=== PATIENT | female | born 1940 | race Caucasian/White ===

== ENCOUNTER 2017-08-14 09:10 | Emergency (ER) | payer MEDICARE, BC ==
--- NOTE | 2017-08-14 09:14 | EDM.PDOC ---
ED HPI GENERAL MEDICAL PROBLEM - General Chief Complaint: Gastrointestinal Problem Stated Complaint: flu like symptoms Time Seen by Provider: 08/14/17 09:14 Source of Information: Reports: Patient, RN, RN Notes Reviewed History Limitations: Reports: No Limitations - History of Present Illness INITIAL COMMENTS - FREE TEXT/NARRATIVE: Pt arrives from home by POV with c/o 2 weeks duration of black diarrhea. Denies abdominal pain, lightheadedness, orthostatic dizziness, vomiting, fever, chills , or urinary Sx's. Admits to occasional mild nausea, decreased appetite, generalized weakness and fatigue, and just not feeling well in general. Pt states that she has had no pain or heartburn. She does get some lower abdominal cramping that precedes the diarrhea. She has not had any blood or melenotic stool. Duration: Week(s): (2), Constant Location: Reports: Abdomen Severity: Severe Improves with: Reports: None Worsens with: Reports: None Associated Symptoms: Reports: No Other Symptoms - Related Data Allergies Allergy/AdvReac Type Severity Reaction Status Date / Time meperidine HCl [From Demerol] Allergy Vomiting Verified 11/02/13 18:06 Home Meds: Home Meds Fish Oil/[place]-3 Fatty Acids [Fish Oil] 1 each PO DAILY 11/02/13 [History] Multivitamin [Multivitamins] 1 each PO DAILY 11/02/13 [History] Alendronate Sodium [Alendronate] 1 tab PO ASDIRECTED 08/14/17 [History] Calcium Carbonate/Vitamin D3 [Calcium 600-Vit D3 800 Caplet] 1 tab PO DAILY 08/30 [History] Donepezil HCl 1 tab PO DAILY 08/14/17 [History] Flaxseed Oil/[place] 3,6,9 [Sv Flaxseed Oil 1,300 mg Sftgl] 1 cap PO DAILY [History] Simvastatin [Simvastatin] 1 tab PO DAILY 08/14/17 [History] Past Medical History Musculoskeletal History: Reports: Osteoporosis Psychiatric History: Reports: Dementia Social & Family History - Family History Oncologic: Reports: Other (See Below) (Father of Stomach cancer at 75yrs.) - Living Situation & Occupation Occupation: Retired ED ROS GENERAL - Review of Systems Review Of Systems: ROS reveals no pertinent complaints other than HPI. ED EXAM, GENERAL - Physical Exam Exam: See Below Exam Limited By: No Limitations General Appearance: Alert, No Apparent Distress, Other (ill but non-toxic appearing) Eye Exam: Bilateral Eye: EOMI, PERRL, Other (conjunctival pallor) Ears: Normal External Exam, Hearing Grossly Normal Nose: Normal Inspection, Normal Mucosa, No Blood Throat/Mouth: Normal Lips, Normal Teeth, Normal Gums, Normal Oropharynx, Normal Voice, No Airway Compromise, Other (dry oral membranes) Head: Atraumatic, Normocephalic Neck: Normal Inspection, Supple, Non-Tender, Full Range of Motion Respiratory/Chest: No Respiratory Distress, Lungs Clear, Normal Breath Sounds, No Accessory Muscle Use, Chest Non-Tender Cardiovascular: Regular Rate, Rhythm, No Edema, Tachycardia GI/Abdominal: Normal Bowel Sounds, Soft, Non-Tender, No Distention, No Abnormal Bruit. No: Guarding, Rigid, Rebound (Female) Exam: Deferred Rectal (Female) Exam: Normal Exam, Normal Rectal Tone, Heme - Stool Back Exam: Normal Inspection, Full Range of Motion. No: CVA Tenderness (L), CVA Tenderness (R) Extremities: Normal Inspection, Normal Range of Motion, Non-Tender, Normal Capillary Refill, No Pedal Edema Neurological: Alert, Oriented, CN II-XII Intact, Normal Cognition, Normal Gait, No Motor/Sensory Deficits Psychiatric: Normal Affect, Normal Mood Skin Exam: Warm, Dry, Intact, No Rash, Pallor Course - Vital Signs Last Recorded V/S: Last Vital Signs Temp 37.2 C 08/14/17 09:13 Pulse 104 H 08/14/17 09:13 Resp 16 08/14/17 09:13 BP 129/71 08/14/17 09:13 Pulse Ox 98 08/14/17 09:13 - Orders/Labs/Meds Orders: Active Orders 24 hr Category Date Time Status Peripheral IV Care [RC] . DIRECTED Care 08/14/17 09:37 Active UA W/MICROSCOPIC [URIN] Stat Lab 08/14/17 09:37 Uncollected Pantoprazole [ProTONIX IV] 40 mg Med 08/14/17 09:40 Active Sodium Chloride 0.9% [Normal Saline] 100 ml IV .CONTINUOS Sodium Chloride 0.9% [Saline Flush] Med 08/14/17 09:37 Active 10 ml FLUSH ASDIRECTED PRN Peripheral IV Insertion Adult [OM.PC] Stat Oth 08/14/17 09:37 Ordered Medication Orders Pantoprazole Sodium 40 mg/ (Sodium Chloride) 100 mls @ 20 mls/hr IV .CONTINUOS BRIE Last Admin: 08/14/17 10:17 Dose: 20 mls/hr Sodium Chloride (Saline Flush) 10 ml FLUSH ASDIRECTED PRN PRN Reason: Keep Vein Open Last Admin: 08/14/17 09:50 Dose: 10 ml Labs: Laboratory Tests 08/14/17 08/14/17 08/14/17 Range/Units 09:45 09:45 09:45 WBC 6.0 (5.0-10.0) 10^3/uL RBC 4.10 L (4.2-5.4) 10^6/uL Hgb 13.1 (12.0-16.0) g/dL Hct 38.7 (37.0-47.0) % MCV 94.4 (80-100) fL MCH 32.0 (27.0-34.0) pg MCHC 33.9 (33.0-35.0) g/dL Plt Count 318 (150-450) 10^3/uL Neut % (Auto) 70.6 (42.2-75.2) % Lymph % (Auto) 20.0 L (20.5-50.1) % [place] % (Auto) 8.2 H (2-8) % Eos % (Auto) 0.5 L (1.0-3.0) % Baso % (Auto) 0.7 (0.0-1.0) % PT 10.1 (9.0-12.0) SEC INR 1.0 (0.9-1.2) APTT 23.8 (22.0-34.0) SEC Sodium 142 (135-145) mmol/L Potassium 3.1 L (3.6-5.0) mmol/L Chloride 105 (101-111) mmol/L Carbon Dioxide 25.0 (21.0-31.0) mmol/L Anion Gap 15.1 BUN 21 H (7-18) mg/dL Creatinine 0.7 (0.6-1.3) mg/dL Est Cr Clr Drug Dosing 65.01 mL/min Estimated GFR (MDRD) > 60 BUN/Creatinine Ratio 30.00 Glucose 107 H (74-105) mg/dL Lactic Acid (0.5-2.2) mmol/L Calcium 9.8 (8.4-10.2) mg/dl Total Bilirubin 1.0 (0.2-1.0) mg/dL AST 37 (10-42) IU/L ALT 32 (10-60) IU/L Alkaline Phosphatase 54 (42-121) IU/L Lactate Dehydrogenase 172 (91-180) IU/L Total Protein 7.2 (6.7-8.2) g/dl Albumin 4.5 (3.2-5.5) g/dl Globulin 2.7 Albumin/Globulin Ratio 1.67 Amylase 56 (28-100) U/L Lipase 32 (22-51) U/L 08/14/17 Range/Units 09:45 WBC (5.0-10.0) 10^3/uL RBC (4.2-5.4) 10^6/uL Hgb (12.0-16.0) g/dL Hct (37.0-47.0) % MCV (80-100) fL MCH (27.0-34.0) pg MCHC (33.0-35.0) g/dL Plt Count (150-450) 10^3/uL Neut % (Auto) (42.2-75.2) % Lymph % (Auto) (20.5-50.1) % [place] % (Auto) (2-8) % Eos % (Auto) (1.0-3.0) % Baso % (Auto) (0.0-1.0) % PT (9.0-12.0) SEC INR (0.9-1.2) APTT (22.0-34.0) SEC Sodium (135-145) mmol/L Potassium (3.6-5.0) mmol/L Chloride (101-111) mmol/L Carbon Dioxide (21.0-31.0) mmol/L Anion Gap BUN (7-18) mg/dL Creatinine (0.6-1.3) mg/dL Est Cr Clr Drug Dosing mL/min Estimated GFR (MDRD) BUN/Creatinine Ratio Glucose (74-105) mg/dL Lactic Acid 0.8 (0.5-2.2) mmol/L Calcium (8.4-10.2) mg/dl Total Bilirubin (0.2-1.0) mg/dL AST (10-42) IU/L ALT (10-60) IU/L Alkaline Phosphatase (42-121) IU/L Lactate Dehydrogenase (91-180) IU/L Total Protein (6.7-8.2) g/dl Albumin (3.2-5.5) g/dl Globulin Albumin/Globulin Ratio Amylase (28-100) U/L Lipase (22-51) U/L Heme Negative stool Meds: Medications Generic Name Dose Route Start Last Admin Trade Name Freq PRN Reason Stop Dose Admin Pantoprazole Sodium 40 mg/ 100 mls @ 20 mls/hr 08/14/17 09:40 08/14/17 10:17 Sodium Chloride IV 20 mls/hr .CONTINUOS BRIE Administration Sodium Chloride 10 ml 08/14/17 09:37 08/14/17 09:50 Saline Flush FLUSH 10 ml ASDIRECTED PRN Administration Keep Vein Open Discontinued Medications Generic Name Dose Route Start Last Admin Trade Name Freq PRN Reason Stop Dose Admin Sodium Chloride 1,000 mls @ 999 mls/hr 08/14/17 09:39 08/14/17 09:59 Normal Saline IV 08/14/17 10:39 999 mls/hr .BOLUS ONE Administration Pantoprazole Sodium 80 mg 08/14/17 09:39 08/14/17 10:03 Protonix Iv IVPUSH 08/14/17 09:40 80 mg .BOLUS ONE Administration Departure - Departure Time of Disposition: 13:10 Disposition: Home, Self-Care 01 Condition: Good Clinical Impression: Diarrhea - Discharge Information Instructions: Diarrhea, Adult, [id number] Referrals: Noreen Khoury MD [Primary Care Provider] - Forms: ED Department Discharge Additional Instructions: Rx: Lomotil Follow up in clinic with your doctor in 3 to 4 days for recheck. Return to ER if worse at any time. - My Orders Last 24 Hours: My Active Orders 08/14/17 09:37 Peripheral IV Care [RC] . DIRECTED UA W/MICROSCOPIC [URIN] Stat Sodium Chloride 0.9% [Saline Flush] 10 ml FLUSH ASDIRECTED PRN Peripheral IV Insertion Adult [OM.PC] Stat 08/14/17 09:40 Pantoprazole [ProTONIX IV] 40 mg Sodium Chloride 0.9% [Normal Saline] 100 ml IV .CONTINUOS - Assessment/Plan Last 24 Hours: My Active Orders 08/14/17 09:37 Peripheral IV Care [RC] . DIRECTED UA W/MICROSCOPIC [URIN] Stat Sodium Chloride 0.9% [Saline Flush] 10 ml FLUSH ASDIRECTED PRN Peripheral IV Insertion Adult [OM.PC] Stat 08/14/17 09:40 Pantoprazole [ProTONIX IV] 40 mg Sodium Chloride 0.9% [Normal Saline] 100 ml IV .CONTINUOS
[2017-08-14] MEDS ORDERED: Sodium Chloride 0.9% 10 ML Syringe FLUSH PRN (09:37)
[2017-08-14] MEDS ORDERED: Pantoprazole 40 MG Vial IVPUSH ONE (09:39)
[2017-08-14] MEDS ORDERED: Sodium Chloride 0.9% 1,000 ML IV ONE (09:39)
[2017-08-14] MEDS ORDERED: Pantoprazole 40 MG in Sodium Chloride 0.9% 100 ML IV SCH (09:40)
[2017-08-14 10:15] LABS: CHLORIDE,CL 105 mmol/L (101-111); SODIUM,NA 142 mmol/L (135-145)
== END 2017-08-14 13:36 | disposition home or self-care (01) ==
LOC: DL.ED 09:10
DX: R19.7 Diarrhea, unspecified (principal); M81.0 Age-related osteoporosis without current pathological fracture; F03.90 Unspecified dementia, unspecified severity, without behavioral disturbance, psychotic disturbance, mood disturbance, and anxiety; Z88.5 Allergy status to narcotic agent; Z79.899 Other long term (current) drug therapy
CPT/HCPCS: 36415; 80053; 82150; 82272; 83605; 83615; 83690; 85025; 85610; 85730; 96365; 96366; 96376; 99284; C9113; J7030; J7050

== ENCOUNTER 2018-01-15 19:16 | Emergency (ER) | payer MEDICARE, BC ==
[2018-01-15] MEDS ORDERED: Sodium Chloride 0.9% 1,000 ML IV ONE ×2 (19:44→23:04)
[2018-01-15] MEDS ORDERED: Sodium Chloride 0.9% 10 ML Syringe FLUSH PRN (19:44)
[2018-01-15 20:05] LABS: ANION GAP 12.5; CHLORIDE,CL 104 mmol/L (101-111); SODIUM,NA 139 mmol/L (135-145)
[2018-01-15] MEDS ORDERED: Ondansetron 4 MG/2 ML SDV IV ONE (20:53)
[2018-01-15] MEDS ORDERED: Vancomycin 50 MG/ML Oral Solution Bottle Kit PO ONE (21:51)
--- NOTE | 2018-01-15 21:56 | EDM.PDOC ---
ED HPI GENERAL MEDICAL PROBLEM - General Chief Complaint: Gastrointestinal Problem Stated Complaint: [id number] DEHYDRATED Time Seen by Provider: 01/15/18 19:45 Source of Information: Reports: Patient, Family, RN, RN Notes Reviewed History Limitations: Reports: No Limitations - History of Present Illness INITIAL COMMENTS - FREE TEXT/NARRATIVE: Pt to ER with c/o severe diarrhea that is "black". Patient states this happened about 3 months ago and she had C Diff. Pt states she feels she is very dehydrated. C/o nausea at times, decreased appetite, generalized weakness. Onset: Gradual Abdominal Pain Score (Numeric/FACES): 2 - Related Data Allergies Allergy/AdvReac Type Severity Reaction Status Date / Time meperidine HCl [From Demerol] Allergy Vomiting Verified 01/15/18 19:51 Home Meds: Home Meds Fish Oil/[place]-3 Fatty Acids [Fish Oil] 1 each PO DAILY 11/02/13 [History] Multivitamin [Multivitamins] 1 each PO DAILY 11/02/13 [History] Calcium Carbonate/Vitamin D3 [Calcium 600-Vit D3 800 Caplet] 1,000 tab PO DAILY 08/14/17 [History] Donepezil HCl 1 tab PO DAILY 08/14/17 [History] Flaxseed Oil/[place] 3,6,9 [Sv Flaxseed Oil 1,300 mg Sftgl] 1 cap PO DAILY [History] Simvastatin 1 tab PO DAILY 08/14/17 [History] Aspirin [[place] Chewable Aspirin] 81 mg PO DAILY 01/15/18 [History] Raloxifene [Evista] 60 mg PO DAILY 01/15/18 [History] Past Medical History Cardiovascular History: Reports: High Cholesterol Respiratory History: Reports: None Gastrointestinal History: Reports: None, Other (See Below) Other Gastrointestinal History: dairrhea stool in past. Unable to remember. 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: Musculoskeletal History: Reports: Osteoporosis Neurological History: Reports: Other (See Below) Other Neuro History: early onset dementia Psychiatric History: Reports: Dementia Endocrine/Metabolic History: Reports: None, Osteoporosis Hematologic History: Reports: None Immunologic History: Reports: None Oncologic (Cancer) History: Reports: None Dermatologic History: Reports: None - Infectious Disease History Infectious Disease History: Reports: C-Difficile - Past Surgical History HEENT Surgical History: Reports: Cataract Surgery Female Surgical History: Reports: Hysterectomy Social & Family History - Family History Oncologic: Reports: Other (See Below) - Tobacco Use Smoking Status *Q: Never Smoker Second Hand Smoke Exposure: No - Caffeine Use Caffeine Use: Reports: Coffee Other Caffeine Use: 5 cups/day. - Recreational Drug Use Recreational Drug Use: No - Living Situation & Occupation Occupation: Retired ED ROS GENERAL - Review of Systems Review Of Systems: ROS reveals no pertinent complaints other than HPI. ED EXAM, GI/ABD - Physical Exam Exam: See Below Exam Limited By: No Limitations General Appearance: Lethargic, Mild Distress Eyes: Bilateral: Normal Appearance, EOMI Ears: Normal External Exam, Hearing Grossly Normal Nose: Normal Inspection Throat/Mouth: Normal Voice, No Airway Compromise, Other (dry mucous membranes) Head: Atraumatic, Normocephalic Neck: Normal Inspection, Supple, Non-Tender, Full Range of Motion Respiratory/Chest: No Respiratory Distress, Lungs Clear, Normal Breath Sounds, No Accessory Muscle Use, Chest Non-Tender Cardiovascular: Normal Peripheral Pulses, Regular Rate, Rhythm, No Edema, No Gallop, No JVD, No Murmur, No Rub GI/Abdominal Exam: Normal Bowel Sounds, Soft, No Organomegaly, No Distention, No Abnormal Bruit, No Mass, Pelvis Stable, Tender (Female) Exam: Deferred Rectal (Female) Exam: Deferred Back Exam: Normal Inspection, Full Range of Motion, NT Extremities: Normal Inspection, Normal Range of Motion, Non-Tender, Normal Capillary Refill, No Pedal Edema Neurological: Alert, Oriented, CN II-XII Intact, Normal Cognition, Normal Gait, Normal Reflexes, No Motor/Sensory Deficits Psychiatric: Normal Affect, Normal Mood Skin Exam: Warm, Dry, Intact, Normal Color, No Rash Lymphatic: No Adenopathy EKG INTERPRETATION EKG Date: 01/15/18 Time: 22:35 Rhythm: NSR Rate (Beats/Min): 80 Comparison: No Change Course - Vital Signs Last Recorded V/S: Last Vital Signs Temp 99.5 F 01/16/18 00:33 Pulse 92 01/16/18 00:33 Resp 19 01/16/18 00:33 BP 96/57 L 01/16/18 00:33 Pulse Ox 94 L 01/16/18 00:33 Orthostatic Blood Pressure [ 109/57 Standing] Orthostatic Blood Pressure [ 104/65 Sitting] Orthostatic Blood Pressure [ 108/54 Supine] - Orders/Labs/Meds Orders: Active Orders 24 hr Category Date Time Status EKG 12 Lead [EKG Documentation Completion] [] URGENT Care 01/16/18 00:15 Active Peripheral IV Care [] . DIRECTED Care 01/15/18 19:45 Active C DIFFICILE TOXIN BY PCR [MREF] Stat Lab 01/15/18 21:18 Received CULTURE STOOL [RM] Stat Lab 01/15/18 21:18 Received OCCULT BLOOD DIAGNOSTIC [OP] Stat Lab 01/15/18 21:18 Ordered SHIGA TOXIN 1 & 2 [MREF] Stat Lab 01/15/18 21:18 Received Peripheral IV Insertion Adult [OM.PC] Stat Oth 01/15/18 19:44 Ordered Labs: Laboratory Tests 01/15/18 01/15/18 01/15/18 Range/Units 19:38 19:38 19:38 WBC 11.6 H (5.0-10.0) 10^3/uL RBC 4.15 L (4.2-5.4) 10^6/uL Hgb 13.1 (12.0-16.0) g/dL Hct 39.6 (37.0-47.0) % MCV 95.4 (80-100) fL MCH 31.6 (27.0-34.0) pg MCHC 33.1 (33.0-35.0) g/dL Plt Count 285 (150-450) 10^3/uL Neut % (Auto) 88.7 H (42.2-75.2) % Lymph % (Auto) 6.3 L (20.5-50.1) % [place] % (Auto) 4.4 (2-8) % Eos % (Auto) 0.4 L (1.0-3.0) % Baso % (Auto) 0.2 (0.0-1.0) % Sodium 139 (135-145) mmol/L Potassium 3.5 L (3.6-5.0) mmol/L Chloride 104 (101-111) mmol/L Carbon Dioxide 26.0 (21.0-31.0) mmol/L Anion Gap 12.5 BUN 23 H (7-18) mg/dL Creatinine 0.8 (0.6-1.3) mg/dL Est Cr Clr Drug Dosing TNP Estimated GFR (MDRD) > 60 BUN/Creatinine Ratio 28.75 Glucose 121 H (74-105) mg/dL Calcium 9.6 (8.4-10.2) mg/dl Total Bilirubin 1.2 H (0.2-1.0) mg/dL AST 32 (10-42) IU/L ALT 25 (10-60) IU/L Alkaline Phosphatase 60 (42-121) IU/L Troponin I < 0.02 (0.00-0.02) ng/ml Total Protein 7.1 (6.7-8.2) g/dl Albumin 4.5 (3.2-5.5) g/dl Globulin 2.6 Albumin/Globulin Ratio 1.73 01/16/18 Range/Units 00:52 WBC 8.5 (5.0-10.0) 10^3/uL RBC 3.61 L (4.2-5.4) 10^6/uL Hgb 11.6 L D (12.0-16.0) g/dL Hct 34.8 L (37.0-47.0) % MCV 96.4 (80-100) fL MCH 32.1 (27.0-34.0) pg MCHC 33.3 (33.0-35.0) g/dL Plt Count 249 (150-450) 10^3/uL Neut % (Auto) (42.2-75.2) % Lymph % (Auto) (20.5-50.1) % [place] % (Auto) (2-8) % Eos % (Auto) (1.0-3.0) % Baso % (Auto) (0.0-1.0) % Sodium (135-145) mmol/L Potassium (3.6-5.0) mmol/L Chloride (101-111) mmol/L Carbon Dioxide (21.0-31.0) mmol/L Anion Gap BUN (7-18) mg/dL Creatinine (0.6-1.3) mg/dL Est Cr Clr Drug Dosing Estimated GFR (MDRD) BUN/Creatinine Ratio Glucose (74-105) mg/dL Calcium (8.4-10.2) mg/dl Total Bilirubin (0.2-1.0) mg/dL AST (10-42) IU/L ALT (10-60) IU/L Alkaline Phosphatase (42-121) IU/L Troponin I (0.00-0.02) ng/ml Total Protein (6.7-8.2) g/dl Albumin (3.2-5.5) g/dl Globulin Albumin/Globulin Ratio Meds: Medications Discontinued Medications Generic Name Dose Route Start Last Admin Trade Name Freq PRN Reason Stop Dose Admin Dicyclomine HCl 10 mg 01/15/18 22:08 01/15/18 22:24 Bentyl PO 01/15/18 22:09 10 mg ONETIME ONE Administration Dicyclomine HCl 20 mg 01/15/18 22:34 01/15/18 22:43 Bentyl IM 01/15/18 22:35 20 mg ONETIME ONE Administration Sodium Chloride 1,000 mls @ 999 mls/hr 01/15/18 19:44 01/15/18 19:49 Normal Saline IV 01/15/18 20:44 999 mls/hr .BOLUS ONE Administration Vancomycin HCl 500 mg/ Sodium 100 mls @ 100 mls/hr 01/15/18 22:07 01/15/18 22 :14 Chloride IV 01/15/18 23:06 100 mls/hr ONETIME ONE Administration Sodium Chloride 1,000 mls @ 999 mls/hr 01/15/18 23:04 01/15/18 23:10 Normal Saline IV 01/16/18 00:04 999 mls/hr .BOLUS ONE Administration Metoclopramide HCl 10 mg 01/15/18 22:47 01/15/18 22:57 Reglan IVPUSH 01/15/18 22:48 10 mg ONETIME ONE Administration Ondansetron HCl 4 mg 01/15/18 20:53 01/15/18 20:58 Zofran IV 01/15/18 20:54 4 mg ONETIME ONE Administration Sodium Chloride 10 ml 01/15/18 19:44 01/15/18 19:49 Saline Flush FLUSH 10 ml ASDIRECTED PRN Administration Keep Vein Open Vancomycin HCl 125 mg 01/15/18 21:51 01/15/18 22:09 Vancomycin 50 Mg/Ml Soln PO 01/15/18 21:52 Not Given ONETIME ONE - Re-Assessments/Exams Free Text/Narrative Re-Assessment/Exam: 01/15/18 23:56 Patient developed more nausea with pain radiating up into the chest. Troponin and EKG ordered. 01/16/18 05:37 Discussed patient case with Dr. Salgado twice. The first time he felt the patient could be discharged on oral vancomycin. The patient developed nausea, chest pain , and her BP dropped. Second time Dr. Salgado was notified, he states he feels the patient should be transferred to [facility] for a scope. The patient refuses to go to [facility]. She states she will return to the ER if she has any further problems. Departure - Departure Time of Disposition: 21:52 Disposition: Home, Self-Care 01 Condition: Fair Clinical Impression: Diarrhea Qualifiers: Diarrhea type: infectious Qualified Code(s): A09 - Infectious gastroenteritis and colitis, unspecified - Discharge Information Instructions: Food Choices to Help Relieve Diarrhea, Adult, Clostridium Difficile Infection, [id number], Nausea and Vomiting, Adult, [id number], Diarrhea, Adult, [id number] Referrals: Noreen Khoury MD [Primary Care Provider] - Forms: ED Department Discharge Additional Instructions: Drink plenty of fluids Follow up with Dr. Khoury on Thursday RX: Vancomycin - My Orders Last 24 Hours: My Active Orders 01/15/18 19:44 Peripheral IV Insertion Adult [OM.PC] Stat 01/15/18 19:45 Peripheral IV Care [RC] . DIRECTED 01/15/18 21:18 C DIFFICILE TOXIN BY PCR [MREF] Stat CULTURE STOOL [RM] Stat OCCULT BLOOD DIAGNOSTIC [OP] Stat SHIGA TOXIN 1 & 2 [MREF] Stat 01/16/18 00:15 EKG 12 Lead [EKG Documentation Completion] [RC] URGENT - Assessment/Plan Last 24 Hours: My Active Orders 01/15/18 19:44 Peripheral IV Insertion Adult [OM.PC] Stat 01/15/18 19:45 Peripheral IV Care [RC] . DIRECTED 01/15/18 21:18 C DIFFICILE TOXIN BY PCR [MREF] Stat CULTURE STOOL [RM] Stat OCCULT BLOOD DIAGNOSTIC [OP] Stat SHIGA TOXIN 1 & 2 [MREF] Stat 01/16/18 00:15 EKG 12 Lead [EKG Documentation Completion] [RC] URGENT
[2018-01-15] MEDS ORDERED: Dicyclomine 10 MG Cap PO ONE (22:08)
[2018-01-15] MEDS ORDERED: Dicyclomine 20 MG/2 ML SDV IM ONE (22:34)
[2018-01-15] MEDS ORDERED: Metoclopramide 10 MG/2 ML SDV IVPUSH ONE (22:47)
--- NOTE | 2018-01-19 12:04 | EKG ---
01/15/2018 - TYRONE COOPER - FINDINGS: EKG shows a heart rate of 80 beats per minute, sinus rhythm. [facility] /[id number]
== END 2018-01-16 01:39 | disposition home or self-care (01) ==
LOC: DL.ED 19:16
DX: A09 Infectious gastroenteritis and colitis, unspecified (principal); Z88.8 Allergy status to other drugs, medicaments and biological substances; Z79.899 Other long term (current) drug therapy; Z79.82 Long term (current) use of aspirin
CPT/HCPCS: 36415; 80053; 82272; 84484; 85025; 85027; 87045; 87493; 87899; 93005; 96361; 96365; 96372; 96375; 99284; A9270; J0500; J2405; J2765; J3370; J7030; J7050; 93010

== ENCOUNTER 2020-12-28 05:53 | Day surgery (SDC) | payer MEDICARE, BC ==
[2020-12-28] MEDS ORDERED: Midazolam 1 MG/ML 2 ML SDV IV ONE (05:54)
[2020-12-28] MEDS ORDERED: fentaNYL 100 MCG/2 ML SDV IV ONE (05:54)
[2020-12-28] MEDS ORDERED: fentaNYL 100 MCG/2 ML SDV ONE (06:01)
[2020-12-28] MEDS ORDERED: Midazolam 1 MG/ML 2 ML SDV ONE (06:01)
[2020-12-28] MEDS: Dextrose 5%-0.45% NaCl 1,000 ML IV SCH (06:37)
[2020-12-28] MEDS: fentaNYL 100 MCG/2 ML SDV IV ONE ×2 (06:56)
[2020-12-28] MEDS: Midazolam 1 MG/ML 2 ML SDV IV ONE ×2 (06:57→06:58)
--- NOTE | 2020-12-28 08:35 | OR ---
DATE: 12/28/2020 PROCEDURE: Esophagogastroduodenoscopy, NBI, and multiple pinch biopsies. INSTRUMENT USED: [id number] Olympus video panendoscope. PREMEDICATIONS: No oral or topical anesthesia used. Fentanyl 100 mcg intravenous, Versed 1.5 mg intravenous. Nasal O2 cannula. The procedure was done under pulse oximetry, BP recording, and director speech and hearing. INDICATION: The patient with persistent upper abdominal pain for the past couple of months, unexplained and not responsive to medical measures, on long- term aspirin. Also has been on PPI recently. Esophagogastroduodenoscopy is performed for detection of any active erosive lesions, Kwan esophagus and/or malignancy also under consideration, H. pylori status to be determined, endoscopic hemostasis therapy if needed. DESCRIPTION OF PROCEDURE: The scope was passed with ease. Adequate visualization of the esophagus was made from proximal to distal areas. No upper esophageal lesions identified. No distal esophageal stricture. No uphill or downhill esophageal varices. No Fide-Martinez tear. No evidence of erosive esophagitis by Fenton criteria. No esophageal polyp or tumor mass identified. Z-line was seen at around 40 cm distal to the oral verge. No esophageal polyp or tumor mass identified. No proximal gastric varices noted. Gastric fundus examination by retroflexion showed no polypoid lesions. No gastric ulcer, malignant mass, or vascular ectasia identified. Duodenal bulb showed no ulcer. Visualized second part of the duodenum was unremarkable. In the proximal gastric antrum, benign-appearing erosion was noted without bleeding from it. NBI and magnification views were obtained. Photographs were taken. Multiple pinch biopsies were taken from the gastric antrum and proximal body and sent for PyloriTek test for H. pylori, and if negative in an hour tissues will to be sent for histopathology. No bleeding was noted from any of the visualized areas at the completion of examination. Photographs were taken of the duodenal bulb, gastric antrum, fundus, and distal esophagus. IMPRESSION: Gastric antral erosion. The patient tolerated the procedure well. [facility] /[id number]
--- NOTE | 2020-12-31 07:47 | LETTER ---
12/28/2020 RE: TYRONE COOPER : 1940 [place] [address] Khoury: Ms. Tyrone Cooper had esophagogastroduodenoscopy done this morning. She tolerated the procedure well. I herewith send a copy of the endoscopy note and photographs for your review. Thank you. Sincerely, [facility] /[id number]
== END 2020-12-28 09:11 | disposition home or self-care (01) ==
LOC: DL.ENDO 05:53
PROVIDERS: ATTEND Internal Medicine Gastroenterology
DX: R10.10 Upper abdominal pain, unspecified (principal); E78.5 Hyperlipidemia, unspecified; M81.0 Age-related osteoporosis without current pathological fracture; G30.9 Alzheimer's disease, unspecified; Z88.8 Allergy status to other drugs, medicaments and biological substances; Z98.890 Other specified postprocedural states
CPT/HCPCS: 43239; 87077; J2250; J3010; J7042

== ENCOUNTER 2021-06-21 12:04 | Emergency (ER) | payer MEDICARE, BC ==
[2021-06-21] MEDS ORDERED: Diltiazem 25 MG/5 ML SDV ONE (12:13)
[2021-06-21] MEDS ORDERED: Sodium Chloride 0.9% 10 ML Syringe FLUSH PRN (12:20)
[2021-06-21] MEDS ORDERED: Sodium Chloride 0.9% 1,000 ML IV ONE (12:24)
[2021-06-21] MEDS ORDERED: Diltiazem 25 MG/5 ML SDV IVPUSH ONE (12:31)
--- NOTE | 2021-06-21 12:41 | EDM.PDOC ---
ED HPI GENERAL MEDICAL PROBLEM - General Chief Complaint: Cardiovascular Problem Stated Complaint: AMBULANCE Time Seen by Provider: 06/21/21 12:35 Source of Information: Reports: Patient, Family History Limitations: Reports: No Limitations, Other (hx of dementia) - History of Present Illness INITIAL COMMENTS - FREE TEXT/NARRATIVE: 81 y/o F coming form [facility] for tachycardia. Pt was at [facility] to receive and exam and Prolia shot. Pt reportedly got her shot and then staff noticed her HR was in the 160's. Staff had not taken her vitals before the injection so it is unclear if the injection brought on the tachycardia. Unknown how long pts HR was elevated. Pt has no complaints. hx of dementia, hyperlipidemia. Is on Aricept. Lives alone in an apartment. Otherwise healthy individual with no heart, neuro, diabetes, ht, in her hx. She denies fever, cough, chills, drugs, etoh, constipation, NVD, cp, db, abd pn, pelvic pn, diff voiding, ext pain. - Related Data Allergies Allergy/AdvReac Type Severity Reaction Status Date / Time meperidine HCl [From Demerol] Allergy Vomiting Verified 12/28/20 06:13 Home Meds: Home Meds Fish Oil/[place]-3 Fatty Acids [Fish Oil] 1 each PO DAILY 11/02/13 [History] Multivitamin [Multivitamins] 1 each PO DAILY 11/02/13 [History] Calcium Carbonate/Vitamin D3 [Calcium 600-Vit D3 800 Caplet] 1,000 tab PO DAILY 08/14/17 [History] Donepezil HCl 10 mg PO .NIGHTLY 08/14/17 [History] Flaxseed Oil/[place] 3,6,9 [Sv Flaxseed Oil 1,300 mg Sftgl] 1 cap PO DAILY 08/30 [History] Simvastatin 40 mg PO DAILY 08/14/17 [History] Omeprazole 20 mg PO DAILY 12/27/20 [History] Sertraline [Zoloft] 25 mg PO DAILY 12/27/20 [History] Past Medical History HEENT History: Reports: Cataract Cardiovascular History: Reports: High Cholesterol Respiratory History: Reports: None Gastrointestinal History: Reports: None, Other (See Below) Other Gastrointestinal History: dairrhea stool in past. Unable to remember. 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: Musculoskeletal History: Reports: Osteoporosis Neurological History: Reports: Other (See Below) Other Neuro History: early onset dementia Psychiatric History: Reports: Dementia Endocrine/Metabolic History: Reports: None, Osteoporosis Other Endocrine/Metabolic History: IMPAIRED GLUCOSE TOLERANCE Hematologic History: Reports: None Immunologic History: Reports: None Oncologic (Cancer) History: Reports: None Dermatologic History: Reports: None Other Dermatologic History: NEOPLASM OF SKIN - Infectious Disease History Infectious Disease History: Reports: C-Difficile - Past Surgical History Female Surgical History: Reports: Hysterectomy Social & Family History - Family History Family Medical History: No Pertinent Family History Oncologic: Reports: Other (See Below) - Caffeine Use Caffeine Use: Reports: Coffee Other Caffeine Use: 5 cups/day. - Living Situation & Occupation Occupation: Retired ED ROS GENERAL - Review of Systems Review Of Systems: Comprehensive ROS is negative, except as noted in HPI. ED EXAM, GENERAL - Physical Exam Exam: See Below Exam Limited By: No Limitations General Appearance: Alert, No Apparent Distress Nose: Normal Inspection, Normal Mucosa, No Blood Throat/Mouth: Normal Inspection, Normal Lips, Normal Teeth, Normal Gums, Normal Oropharynx, Normal Voice, No Airway Compromise Head: Atraumatic, Normocephalic Neck: Normal Inspection, Supple, Non-Tender, Full Range of Motion Cardiovascular: Tachycardia GI/Abdominal: Soft, Non-Tender (Female) Exam: Deferred Rectal (Female) Exam: Deferred Back Exam: Normal Inspection, Full Range of Motion Extremities: Normal Inspection, Normal Range of Motion, Non-Tender, Normal Capillary Refill, No Pedal Edema Neurological: Alert, CN II-XII Intact, Normal Gait, Normal Reflexes, No Motor/Sensory Deficits Psychiatric: Normal Affect, Normal Mood Skin Exam: Warm, Dry, Intact #1 Interpretation EKG Date: 06/21/21 Time: 12:09 Rhythm: Other (afib rvr) [place]: LAD-Left [place] Deviation P-Wave: Absent QRS: Normal ST-T: Normal QT: Normal #2 Interpretation EKG Date: 06/21/21 Time: 12:24 Rhythm: Other (sinus) [place]: LAD-Left [place] Deviation P-Wave: Present QRS: Normal ST-T: Normal QT: Normal EKG Interpretation Comments: sinus rhythm hr 71, LAD, 1st degree block, no ectopy or st changes. Course - Vital Signs Last Recorded V/S: Last Vital Signs Temp 97.1 F 06/21/21 12:10 Pulse 157 H 06/21/21 12:10 Resp 20 06/21/21 12:10 BP 113/100 H 06/21/21 12:10 Pulse Ox 98 06/21/21 12:10 - Orders/Labs/Meds Orders: Active Orders 24 hr Category Date Time Status EKG Documentation Completion [RC] STAT Care 06/21/21 12:20 Active Peripheral IV Care [RC] . DIRECTED Care 06/21/21 12:22 Active Sodium Chloride 0.9% [Saline Flush] Med 06/21/21 12:20 Active 10 ml FLUSH ASDIRECTED PRN Peripheral IV Insertion Adult [OM.PC] Routine Oth 06/21/21 12:21 Ordered Medication Orders Sodium Chloride (Sodium Chloride 0.9% 10 Ml Syringe) 10 ml FLUSH ASDIRECTED PRN PRN Reason: Keep Vein Open Last Admin: 06/21/21 12:30 Dose: 10 ml Documented by: [id number] Labs: Laboratory Tests 06/21/21 06/21/21 06/21/21 Range/Units 12:12 12:12 12:21 WBC 7.9 (5.0-10.0) 10^3/uL RBC 4.71 (4.2-5.4) 10^6/uL Hgb 15.1 D (12.0-16.0) g/dL Hct 44.9 (37.0-47.0) % MCV 95.3 (80-100) fL MCH 32.1 (27.0-34.0) pg MCHC 33.6 (33.0-35.0) g/dL Plt Count 309 (150-450) 10^3/uL Neut % (Auto) 66.3 (42.2-75.2) % Lymph % (Auto) 25.8 (20.5-50.1) % [place] % (Auto) 6.9 (2-8) % Eos % (Auto) 0.5 L (1.0-3.0) % Baso % (Auto) 0.5 (0.0-1.0) % Sodium 141 (136-145) mmol/L Potassium 4.6 (3.5-5.1) mmol/L Chloride 102 (98-107) mmol/L Carbon Dioxide 25 (21-32) mmol/L Anion Gap 18.6 H (7-13) mEq/L BUN 23 H (7-18) mg/dL Creatinine 0.75 (0.55-1.02) mg/dL Est Cr Clr Drug Dosing TNP Estimated GFR (MDRD) > 60 BUN/Creatinine Ratio 30.7 (No establ ref range) Glucose 106 H (70-99) mg/dL Calcium 10.4 H D (8.5-10.1) mg/dL Magnesium 2.5 H (1.8-2.4) mg/dL Total Bilirubin 1.1 H (0.2-1.0) mg/dL AST 37 (15-37) U/L ALT 37 (14-59) U/L Alkaline Phosphatase 65 (46-116) U/L Troponin I High Sens 9 (<=51) pg/mL Total Protein 8.7 H (6.4-8.2) g/dL Albumin 4.7 (3.4-5.0) g/dL Globulin 4.0 Albumin/Globulin Ratio 1.2 TSH, Ultra Sensitive 1.55 (0.36-3.74) uIU/mL Urine Color Yellow (YELLOW) Urine Appearance Clear (CLEAR) Urine pH 7.0 (5.0-9.0) Ur Specific [place] 1.010 (1.005-1.030) Urine Protein Negative (NEGATIVE) Urine Glucose (UA) Negative (NEGATIVE) Urine Ketones Negative (NEGATIVE) Urine Occult Blood Negative (NEGATIVE) Urine Nitrite Negative (NEGATIVE) Urine Bilirubin Negative (NEGATIVE) Urine Urobilinogen 0.2 (0.2-1.0) mg/dL Ur Leukocyte Esterase Negative (NEGATIVE) Meds: Medications Generic Name Dose Route Start Last Admin Trade Name Freq PRN Reason Stop Dose Admin Sodium Chloride 10 ml 06/21/21 12:20 06/21/21 12:30 Sodium Chloride 0.9% 10 Ml Syringe FLUSH 10 ml ASDIRECTED PRN Administration Keep Vein Open Discontinued Medications Generic Name Dose Route Start Last Admin Trade Name Freq PRN Reason Stop Dose Admin Diltiazem HCl Confirm 06/21/21 12:13 06/21/21 12:32 Diltiazem 25 Mg/5 Ml Sdv Administered 06/21/21 12:14 Not Given Dose 25 mg .ROUTE .STK-MED ONE Diltiazem HCl 20 mg 06/21/21 12:31 12 12:14 Diltiazem 25 Mg/5 Ml Sdv IVPUSH 06/21/21 12:32 10 mg ONETIME ONE Administration Sodium Chloride 1,000 mls @ 999 mls/hr 06/21/21 12:24 06/21/21 12:10 Normal Saline IV 06/21/21 13:24 999 mls/hr .BOLUS ONE Administration - Re-Assessments/Exams Free Text/Narrative Re-Assessment/Exam: 06/21/21 13:44 The pt continues to feel fine and has no complaints. I will have her follow up in clinic about her episode of Afib. I discussed the pts labs, ekg and exam with the pt and her daughter. The pt has done well ambulating without change in HR or any difficulty. 06/21/21 13:50 The pt converted from afib rvr to a sinus rhythm with a first degree block with only 10 mg of diltiazem. It remains unclear if the pt was in afib prior to her clinic visit today. No discernable cause of the afib could be determined. Departure - Departure Time of Disposition: 13:47 Disposition: Home, Self-Care 01 Condition: Good Clinical Impression: Atrial fibrillation with RVR Instructions: Atrial Fibrillation, [id number] Forms: ED Department Discharge Additional Instructions: Follow up in clinic with your primary care facility regarding your ER visit today. Monitor your heart rate for any signs of fast heart rates. If you develop any new symptoms or concerns develop contact your primary care facility or return to the ER. Sepsis Event Note (ED) - Focused Exam Vital Signs: Vital Signs Temp Pulse Resp BP Pulse Ox 06/21/21 12:10 97.1 F 157 H 20 113/100 H 98 - My Orders Last 24 Hours: My Active Orders 06/21/21 12:20 EKG Documentation Completion [RC] STAT Sodium Chloride 0.9% [Saline Flush] 10 ml FLUSH ASDIRECTED PRN 06/21/21 12:21 Peripheral IV Insertion Adult [OM.PC] Routine 06/21/21 12:22 Peripheral IV Care [RC] . DIRECTED - Assessment/Plan Last 24 Hours: My Active Orders 06/21/21 12:20 EKG Documentation Completion [RC] STAT Sodium Chloride 0.9% [Saline Flush] 10 ml FLUSH ASDIRECTED PRN 06/21/21 12:21 Peripheral IV Insertion Adult [OM.PC] Routine 06/21/21 12:22 Peripheral IV Care [RC] . DIRECTED
[2021-06-21 12:47] LABS: ANION GAP 18.6 mEq/L (7-13); CHLORIDE,CL 102 mmol/L (98-107); SODIUM,NA 141 mmol/L (136-145)
--- NOTE | 2021-06-21 13:04 | CR ---
EXAMINATION: Chest 1V Frontal SEX: Female AGE: 81 years CLINICAL HISTORY: 81-year-old female with clinical "tachycardia". No comparison CXR immediately available. Interpretation: No acute cardiopulmonary abnormality. 1. Atheromatous calcifications arch of the ectatic thoracic aorta. 2. Normal cardiac silhouette (size and configuration). 3. No pulmonary vascular congestion, cephalization of flow, alveolar edema or dependent pleural effusion. 4. No lung mass or hilar lymphadenopathy. 5. No alveolar infiltrates, air bronchograms, or peripheral "groundglass" lung opacities (GGO). 6. No pneumothorax or pneumomediastinum. No free subdiaphragmatic air.
== END 2021-06-21 14:09 | disposition home or self-care (01) ==
LOC: DL.ED 12:04
DX: I48.91 Unspecified atrial fibrillation (principal); E78.00 Pure hypercholesterolemia, unspecified; Z88.5 Allergy status to narcotic agent; Z79.899 Other long term (current) drug therapy
CPT/HCPCS: 36415; 71045; 80053; 81003; 83735; 84443; 84484; 85025; 96374; 99285-25; J3490; J7030

== ENCOUNTER 2021-06-28 10:46 | Emergency (ER) | payer MEDICARE, BC ==
[2021-06-28] MEDS ORDERED: Sodium Chloride 0.9% 10 ML Syringe FLUSH PRN (11:02)
[2021-06-28] MEDS ORDERED: Sodium Chloride 0.9% 1,000 ML IV SCH (11:30)
[2021-06-28 11:43] LABS: ANION GAP 13.9 mEq/L (7-13); CHLORIDE,CL 106 mmol/L (98-107); SODIUM,NA 141 mmol/L (136-145)
[2021-06-28 12:00] LABS: CORONAVIRUS COVID-19 NAA NEGATIVE (NEGATIVE)
--- NOTE | 2021-06-28 12:43 | EDM.PDOC ---
ED HPI GENERAL MEDICAL PROBLEM - General Chief Complaint: General Stated Complaint: FEELS REALLY SICK / NOTHING SPECIFIC Time Seen by Provider: 06/28/21 11:12 Source of Information: Reports: Patient History Limitations: Reports: No Limitations - History of Present Illness INITIAL COMMENTS - FREE TEXT/NARRATIVE: 81 y/o F c/o feeling poorly and states she feels like she could just drop. Pt states she didn't sleep all last night and feels weak. She denies asif, vision prob difficulty swallowing, neck pain, back pain, cp, db, abd pn, pelvic pain, ext pain, fever, cough, chills, drugs, etoh, burning with urination, constipation, NVD. Hx of dementia. Lives alone at an apartment. Has been eating adn drinking ok. No recent trauma. - Related Data Allergies Allergy/AdvReac Type Severity Reaction Status Date / Time meperidine HCl [From Demerol] Allergy Vomiting Verified 06/28/21 10:57 Home Meds: Home Meds Fish Oil/[place]-3 Fatty Acids [Fish Oil] 1 each PO DAILY 11/02/13 [History] Multivitamin [Multivitamins] 1 each PO DAILY 11/02/13 [History] Calcium Carbonate/Vitamin D3 [Calcium 600-Vit D3 800 Caplet] 1,000 tab PO DAILY 08/14/17 [History] Donepezil HCl 10 mg PO .NIGHTLY 08/14/17 [History] Flaxseed Oil/[place] 3,6,9 [Sv Flaxseed Oil 1,300 mg Sftgl] 1 cap PO DAILY 08/14/17 [History] Simvastatin 40 mg PO DAILY 08/14/17 [History] Omeprazole 20 mg PO DAILY 12/27/20 [History] Sertraline [Zoloft] 25 mg PO DAILY 12/27/20 [History] Past Medical History HEENT History: Reports: Cataract Cardiovascular History: Reports: Afib, High Cholesterol Respiratory History: Reports: None Gastrointestinal History: Reports: None Other Gastrointestinal History: dairrhea stool in past. Unable to remember. 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: Musculoskeletal History: Reports: Osteoporosis Neurological History: Reports: Other (See Below) Other Neuro History: early onset dementia Psychiatric History: Reports: Dementia Endocrine/Metabolic History: Reports: None, Osteoporosis Other Endocrine/Metabolic History: IMPAIRED GLUCOSE TOLERANCE Hematologic History: Reports: None Immunologic History: Reports: None Oncologic (Cancer) History: Reports: None Dermatologic History: Reports: None Other Dermatologic History: NEOPLASM OF SKIN - Infectious Disease History Infectious Disease History: Reports: C-Difficile - Past Surgical History Head Surgeries/Procedures: Reports: None HEENT Surgical History: Reports: Adenoidectomy, Cataract Surgery, Tonsillectomy Cardiovascular Surgical History: Reports: None GI Surgical History: Reports: Colonoscopy Female Surgical History: Reports: Hysterectomy Musculoskeletal Surgical History: Reports: Other (See Below) Other Musculoskeletal Surgeries/Procedures:: partial knee done on the left Social & Family History - Family History Family Medical History: No Pertinent Family History Oncologic: Reports: Other (See Below) - Tobacco Use Tobacco Use Status *Q: Never Tobacco User - Caffeine Use Caffeine Use: Reports: Coffee Other Caffeine Use: 5 cups/day. Caffeine Use Comment: 2 cups/day - Recreational Drug Use Recreational Drug Use: No - Living Situation & Occupation Occupation: Retired ED ROS GENERAL - Review of Systems Review Of Systems: Comprehensive ROS is negative, except as noted in HPI. ED EXAM, GENERAL - Physical Exam Exam: See Below Exam Limited By: No Limitations General Appearance: Alert, WD/WN, No Apparent Distress Eye Exam: Bilateral Eye: PERRL Ears: Normal External Exam, Normal Canal, Hearing Grossly Normal, Normal TMs Nose: Normal Inspection, Normal Mucosa, No Blood Throat/Mouth: Normal Inspection, Normal Lips, Normal Teeth, Normal Gums, Normal Oropharynx, Normal Voice, No Airway Compromise Head: Atraumatic, Normocephalic Neck: Normal Inspection, Supple, Non-Tender, Full Range of Motion Respiratory/Chest: No Respiratory Distress, Lungs Clear, Normal Breath Sounds, No Accessory Muscle Use, Chest Non-Tender Cardiovascular: Normal Peripheral Pulses, Regular Rate, Rhythm, No Edema, No Gallop, No JVD, No Murmur, No Rub GI/Abdominal: Soft, Non-Tender (Female) Exam: Deferred Rectal (Female) Exam: Deferred Back Exam: Normal Inspection Extremities: Normal Inspection, Normal Range of Motion, Non-Tender, Normal Capillary Refill, No Pedal Edema Neurological: Alert Psychiatric: Normal Affect, Normal Mood Skin Exam: Warm, Dry, Intact Course - Vital Signs Last Recorded V/S: Last Vital Signs Temp 98 F 06/28/21 10:58 Pulse 76 06/28/21 10:58 Resp 16 12/17/21 10:58 BP 128/77 06/28/21 10:58 Pulse Ox 96 06/28/21 10:58 - Orders/Labs/Meds Orders: Active Orders 24 hr Category Date Time Status CULTURE URINE [RM] Stat Lab 06/28/21 12:40 Received Peripheral IV Insertion Adult [OM.PC] Routine Oth 06/28/21 11:02 Ordered Labs: Laboratory Tests 06/28/21 06/28/21 06/28/21 Range/Units 11:14 11:14 11:14 WBC 6.0 (5.0-10.0) 10^3/uL RBC 3.94 L (4.2-5.4) 10^6/uL Hgb 12.4 D (12.0-16.0) g/dL Hct 37.5 (37.0-47.0) % MCV 95.2 (80-100) fL MCH 31.5 (27.0-34.0) pg MCHC 33.1 (33.0-35.0) g/dL Plt Count 296 (150-450) 10^3/uL Neut % (Auto) 72.3 (42.2-75.2) % Lymph % (Auto) 20.4 L (20.5-50.1) % [place] % (Auto) 6.5 (2-8) % Eos % (Auto) 0.3 L (1.0-3.0) % Baso % (Auto) 0.5 (0.0-1.0) % Sodium 141 (136-145) mmol/L Potassium 3.9 (3.5-5.1) mmol/L Chloride 106 (98-107) mmol/L Carbon Dioxide 25 (21-32) mmol/L Anion Gap 13.9 H (7-13) mEq/L BUN 23 H (7-18) mg/dL Creatinine 0.70 (0.55-1.02) mg/dL Est Cr Clr Drug Dosing 56.27 mL/min Estimated GFR (MDRD) > 60 BUN/Creatinine Ratio 32.9 (No establ ref range) Glucose 99 (70-99) mg/dL Lactic Acid 0.8 (0.4-2.0) mmol/L Calcium 9.0 (8.5-10.1) mg/dL Magnesium 2.2 (1.8-2.4) mg/dL Total Bilirubin 0.7 (0.2-1.0) mg/dL AST 21 (15-37) U/L ALT 31 (14-59) U/L Alkaline Phosphatase 45 L (46-116) U/L C-Reactive Protein < 0.2 (0.0-0.9) mg/dL Total Protein 6.6 (6.4-8.2) g/dL Albumin 3.7 (3.4-5.0) g/dL Globulin 2.9 Albumin/Globulin Ratio 1.3 Urine Color (YELLOW) Urine Appearance (CLEAR) Urine pH (5.0-9.0) Ur Specific [place] (1.005-1.030) Urine Protein (NEGATIVE) Urine Glucose (UA) (NEGATIVE) Urine Ketones (NEGATIVE) Urine Occult Blood (NEGATIVE) Urine Nitrite (NEGATIVE) Urine Bilirubin (NEGATIVE) Urine Urobilinogen (0.2-1.0) mg/dL Ur Leukocyte Esterase (NEGATIVE) Urine RBC (0-5) /HPF Urine WBC (0-5/HPF) /HPF Ur Epithelial Cells (NOT SEEN) /HPF Urine Bacteria (0-FEW/HPF) /HPF Urine Mucus (NOT SEEN) /LPF Influenza Type A RNA (NEGATIVE) Influenza Type B RNA (NEGATIVE) SARS-CoV-2 RNA (DANIEL) (NEGATIVE) 06/28/21 06/28/21 Range/Units 11:15 12:40 WBC (5.0-10.0) 10^3/uL RBC (4.2-5.4) 10^6/uL Hgb (12.0-16.0) g/dL Hct (37.0-47.0) % MCV (80-100) fL MCH (27.0-34.0) pg MCHC (33.0-35.0) g/dL Plt Count (150-450) 10^3/uL Neut % (Auto) (42.2-75.2) % Lymph % (Auto) (20.5-50.1) % [place] % (Auto) (2-8) % Eos % (Auto) (1.0-3.0) % Baso % (Auto) (0.0-1.0) % Sodium (136-145) mmol/L Potassium (3.5-5.1) mmol/L Chloride (98-107) mmol/L Carbon Dioxide (21-32) mmol/L Anion Gap (7-13) mEq/L BUN (7-18) mg/dL Creatinine (0.55-1.02) mg/dL Est Cr Clr Drug Dosing mL/min Estimated GFR (MDRD) BUN/Creatinine Ratio (No establ ref range) Glucose (70-99) mg/dL Lactic Acid (0.4-2.0) mmol/L Calcium (8.5-10.1) mg/dL Magnesium (1.8-2.4) mg/dL Total Bilirubin (0.2-1.0) mg/dL AST (15-37) U/L ALT (14-59) U/L Alkaline Phosphatase (46-116) U/L C-Reactive Protein (0.0-0.9) mg/dL Total Protein (6.4-8.2) g/dL Albumin (3.4-5.0) g/dL Globulin Albumin/Globulin Ratio Urine Color Yellow (YELLOW) Urine Appearance Clear (CLEAR) Urine pH 7.0 (5.0-9.0) Ur Specific [place] 1.025 (1.005-1.030) Urine Protein Negative (NEGATIVE) Urine Glucose (UA) Negative (NEGATIVE) Urine Ketones Trace H (NEGATIVE) Urine Occult Blood Negative (NEGATIVE) Urine Nitrite Negative (NEGATIVE) Urine Bilirubin Negative (NEGATIVE) Urine Urobilinogen 0.2 (0.2-1.0) mg/dL Ur Leukocyte Esterase Trace H (NEGATIVE) Urine RBC Not seen (0-5) /HPF Urine WBC 0-5 (0-5/HPF) /HPF Ur Epithelial Cells Few (NOT SEEN) /HPF Urine Bacteria Rare (0-FEW/HPF) /HPF Urine Mucus Moderate H (NOT SEEN) /LPF Influenza Type A RNA Negative (NEGATIVE) Influenza Type B RNA Negative (NEGATIVE) SARS-CoV-2 RNA (DANIEL) Negative (NEGATIVE) Meds: Medications Discontinued Medications Generic Name Dose Route Start Last Admin Trade Name Freq PRN Reason Stop Dose Admin Sodium Chloride 1,000 mls @ 999 mls/hr 06/28/21 11:30 06/28/21 11:20 Normal Saline IV 07/02/21 11:19 999 mls/hr ASDIRECTED BRIE Administration Sodium Chloride 10 ml 06/28/21 11:02 06/28/21 11:19 Sodium Chloride 0.9% 10 Ml Syringe FLUSH 10 ml ASDIRECTED PRN Administration Keep Vein Open - Re-Assessments/Exams Free Text/Narrative Re-Assessment/Exam: 06/28/21 12:41 I discussed the labs, and exam with the pt and explained the findings. She reports feeling better after the fluid administration and believes a lot of her symptoms were brought on by loneliness and feeling isolated where she lives. Departure - Departure Time of Disposition: 13:05 Disposition: Home, Self-Care 01 Condition: Good Clinical Impression: Encounter for medical screening examination - Discharge Information *PRESCRIPTION DRUG MONITORING PROGRAM REVIEWED*: Not Applicable *COPY OF PRESCRIPTION DRUG MONITORING REPORT IN PATIENT JUDD: Not Applicable Referrals: PCP,None [Primary Care Provider] - Forms: ED Department Discharge Additional Instructions: Follow up wit your primary care facility today about your ER visit. Sepsis Event Note (ED) - Evaluation Sepsis Screening Result: No Definite Risk - Focused Exam Vital Signs: Vital Signs Temp Pulse Resp BP Pulse Ox 06/28/21 10:58 98 F 76 16 128/77 96 - My Orders Last 24 Hours: My Active Orders 06/28/21 11:02 Peripheral IV Insertion Adult [OM.PC] Routine 06/28/21 12:40 CULTURE URINE [RM] Stat - Assessment/Plan Last 24 Hours: My Active Orders 06/28/21 11:02 Peripheral IV Insertion Adult [OM.PC] Routine 06/28/21 12:40 CULTURE URINE [RM] Stat
== END 2021-06-28 13:20 | disposition home or self-care (01) ==
LOC: DL.ED 10:46
DX: Z02.89 Encounter for other administrative examinations (principal); I48.91 Unspecified atrial fibrillation; E78.00 Pure hypercholesterolemia, unspecified; Z20.822 Contact with and (suspected) exposure to COVID-19; Z79.899 Other long term (current) drug therapy; Z88.5 Allergy status to narcotic agent
CPT/HCPCS: 0240U; 36415; 80053; 81001; 83605; 83735; 85025; 86140; 87086; 99284; J7030

== ENCOUNTER 2022-08-30 10:31 | Emergency (ER) | payer MEDICARE, BC ==
[2022-08-30] MEDS ORDERED: Ondansetron 4 MG/2 ML SDV IVPUSH ONE (10:48)
[2022-08-30 11:17] LABS: ANION GAP 13.7 mEq/L (7-13); CHLORIDE,CL 104 mmol/L (98-107); SODIUM,NA 141 mmol/L (136-145)
[2022-08-30 11:18] LABS: ESTIMATED GFR 70 mL/min (>=60)
[2022-08-30 11:26] LABS: PTT,PARTIAL THROMBOPLSTIN TIME 21.4 SEC (22.0-34.0)
[2022-08-30] MEDS ORDERED: Midazolam 1 MG/ML 2 ML SDV IVPUSH ONE ×2 (11:27→11:42)
[2022-08-30] MEDS ORDERED: fentaNYL 100 MCG/2 ML SDV IVPUSH ONE ×2 (11:27→11:41)
[2022-08-30] MEDS ORDERED: Lactated Ringers 500 ML IV ONE (11:30)
[2022-08-30] MEDS ORDERED: Lactated Ringers 1,000 ML IV ONE (11:42)
[2022-08-30] MEDS ORDERED: Propofol 200 MG/20 ML SDV IVPUSH ONE (11:54)
== END 2022-08-30 13:18 | disposition home or self-care (01) ==
LOC: DL.ED 10:31
DX: S43.005A Unspecified dislocation of left shoulder joint, initial encounter (principal); S42.422A Displaced comminuted supracondylar fracture without intercondylar fracture of left humerus, initial encounter for closed fracture; I48.91 Unspecified atrial fibrillation; E78.00 Pure hypercholesterolemia, unspecified; M81.0 Age-related osteoporosis without current pathological fracture; Z88.8 Allergy status to other drugs, medicaments and biological substances; Z79.899 Other long term (current) drug therapy; W19.XXXA Unspecified fall, initial encounter
CPT/HCPCS: 23650; 23655; 36415; 70450; 72125; 73020; 73200; 80053; 85025; 85610; 85730; 86850; 86900; 86901; 93010; 96374; 99284; J2250; J2405; J2704; J3010; J7120

== ENCOUNTER 2023-04-19 23:36 | Observation (INO) | payer MEDICARE, BC ==
[~2023-04-19 23:36] MED LIST: Sodium Chloride 0.9% 10 ML Syringe FLUSH PRN
[2023-04-19 23:37] LABS: BASOPHILS PERCENT AUTO 0.2 % (0.0-1.0); EOSINOPHILS PERCENT AUTO 0.5 % (1.0-3.0); HEMATOCRIT 43.7 % (37.0-47.0); HEMOGLOBIN 14.8 g/dL (12.0-16.0); MEAN CORPUSCULAR HEMOGLOBIN 31.9 pg (27.0-34.0); MEAN CORPUSCULAR HGB CONC 33.9 g/dL (33.0-35.0); MEAN CORPUSCULAR VOLUME 94.2 fL (80-100); MONOCYTES PERCENT AUTO 5.7 % (2-8); NEUTROPHILS PERCENT AUTO 88.6 % (42.2-75.2); PLATELET COUNT,PLT 295 10^3/uL (150-450); RED BLOOD CELL COUNT 4.64 10^6/uL (4.2-5.4); WHITE BLOOD CELL COUNT,WBC 17.7 10^3/uL (5.0-10.0)
[2023-04-19 23:56] LABS: A/G RATIO 1.2; ALANINE AMINOTRANSFERASE,ALT 26 U/L (14-59); ALBUMIN 4.3 g/dL (3.4-5.0); ALKALINE PHOSPHATASE 65 U/L (46-116); ANION GAP 15.6 mEq/L (7-13); ASPARTATE AMNIOTRANSFERASE,AST 23 U/L (15-37); BILIRUBIN TOTAL 0.8 mg/dL (0.2-1.0); BLOOD UREA NITROGEN,BUN 20 mg/dL (7-18); BUN/CREATININE RATIO 18.9 (No establ ref range); CALCIUM 9.8 mg/dL (8.5-10.1); CARBON DIOXIDE,CO2 24 mmol/L (21-32); CHLORIDE,CL 101 mmol/L (98-107); CREATININE 1.06 mg/dL (0.55-1.02); GLUCOSE RANDOM 136 mg/dL (70-99); POTASSIUM,K 3.6 mmol/L (3.5-5.1); PROTEIN TOTAL,TP 7.8 g/dL (6.4-8.2); SODIUM,NA 137 mmol/L (136-145)
[2023-04-19 23:57] LABS: ESTIMATED GFR 53 mL/min (>=60)
[2023-04-20 00:29] LABS: APPEARANCE,URINE SLIGHTLY CLOUDY (CLEAR); BILIRUBIN,URINE SMALL (NEGATIVE); COLOR,URINE DARK YELLOW (YELLOW); GLUCOSE,URINE NEGATIVE (NEGATIVE); KETONES,URINE TRACE (NEGATIVE); LEUKOCYTE ESTERASE,URINE NEGATIVE (NEGATIVE); NITRITE,URINE NEGATIVE (NEGATIVE); OCCULT BLOOD,URINE NEGATIVE (NEGATIVE); PH,URINE 5.5 (5.0-9.0); PROTEIN,URINE 100 (NEGATIVE); UROBILINOGEN,URINE 0.2 mg/dL (0.2-1.0)
[2023-04-20 00:56] LABS: AMORPHOUS SEDIMENT,URINE MANY /HPF (NOT SEEN); BACTERIA,URINE FEW /HPF (0-FEW/HPF); EPITHELIAL CELLS,URINE FEW /HPF (NOT SEEN); HYALINE CASTS,URINE MODERATE; MUCUS,URINE MANY /LPF (NOT SEEN); RBC,URINE 0-5 /HPF (0-5); WBC,URINE 0-5 /HPF (0-5/HPF)
[2023-04-20] MEDS ORDERED: Sodium Chloride 0.9% 1,000 ML IV SCH ×2 (01:00→02:30)
[2023-04-20] MEDS ORDERED: Metoclopramide 10 MG/2 ML SDV IVPUSH ONE (01:34)
[2023-04-20 01:53] LABS: CORONAVIRUS COVID-19 NAA NEGATIVE (NEGATIVE); INFLUENZA A NAA NEGATIVE (NEGATIVE); INFLUENZA B NAA NEGATIVE (NEGATIVE)
[2023-04-20] MEDS ORDERED: Acetaminophen/HYDROcodone 325-5 MG Tab PO PRN (02:23)
[2023-04-20] MEDS ORDERED: Acetaminophen 325 MG Tab PO PRN (02:23)
[2023-04-20] MEDS ORDERED: Ondansetron 4 MG/2 ML SDV IVPUSH PRN (02:23)
[2023-04-20 06:38] LABS: BASOPHILS PERCENT AUTO 0.1 % (0.0-1.0); HEMATOCRIT 39.5 % (37.0-47.0); HEMOGLOBIN 13.2 g/dL (12.0-16.0); LYMPHOCYTES PERCENT AUTO 1.7 % (20.5-50.1); MEAN CORPUSCULAR HEMOGLOBIN 31.4 pg (27.0-34.0); MEAN CORPUSCULAR HGB CONC 33.4 g/dL (33.0-35.0); MEAN CORPUSCULAR VOLUME 93.8 fL (80-100); MONOCYTES PERCENT AUTO 3.3 % (2-8); NEUTROPHILS PERCENT AUTO 94.9 % (42.2-75.2); PLATELET COUNT,PLT 275 10^3/uL (150-450); RED BLOOD CELL COUNT 4.21 10^6/uL (4.2-5.4); WHITE BLOOD CELL COUNT,WBC 15.6 10^3/uL (5.0-10.0)
[2023-04-20 06:56] LABS: CALCIUM 8.6 mg/dL (8.5-10.1); CREATININE 1.04 mg/dL (0.55-1.02); EST CRCL DRUG DOSING (CG) 36.63 mL/min
[2023-04-20] MEDS ORDERED: cefTRIAXone 1 GM Vial IVPUSH SCH (09:00)
[2023-04-20] MEDS ORDERED: Enoxaparin 40 MG/0.4 ML Syringe SUBCUT SCH (09:00)
[2023-04-20] MEDS ORDERED: Calcium Carbonate/Vitamin D3 1250 MG-5 MCG Tab PO SCH (11:15)
[2023-04-20] MEDS ORDERED: Simvastatin 40 MG Tab PO SCH (21:00)
[2023-04-20] MEDS ORDERED: Sertraline 50 MG Tab PO SCH (21:00)
[2023-04-21] MEDS ORDERED: Multivitamins with Iron/Calcium/Folic Acid/Minerals Tab PO SCH (09:00)
[2023-04-21] MEDS ORDERED: Donepezil 10 MG Tab PO SCH (09:00)
[2023-04-21] MEDS ORDERED: OMEGA PO SCH (09:00)
[2023-04-21] MEDS ORDERED: [UNRECOGNIZED DRUG - OTHER] PO SCH (09:00)
[2023-04-21] MEDS ORDERED: FISH OIL PO SCH (09:00)
[2023-04-21] MEDS ORDERED: FATTY ACIDS PO SCH (09:00)
[2023-04-21] MEDS ORDERED: Memantine 10 MG Tab PO SCH (21:00)
== END 2023-04-20 13:20 ==
LOC: DL.ED 23:36 → DL.MS 04-20 01:07
PROVIDERS: ADMIT Internal Medicine; ATTEND Internal Medicine
DX: A09 Infectious gastroenteritis and colitis, unspecified (principal); D72.829 Elevated white blood cell count, unspecified; F03.90 Unspecified dementia, unspecified severity, without behavioral disturbance, psychotic disturbance, mood disturbance, and anxiety; E78.00 Pure hypercholesterolemia, unspecified; I48.91 Unspecified atrial fibrillation; M81.0 Age-related osteoporosis without current pathological fracture; Z20.822 Contact with and (suspected) exposure to COVID-19; Z88.8 Allergy status to other drugs, medicaments and biological substances; Z79.899 Other long term (current) drug therapy
CPT/HCPCS: 0240U; 36415; 80048; 80053; 81001; 83735; 85025; 87086; 96361; 96374; 96375; 99284; 99284-25; A9270-GY; G0378; J0696; J1650; J2765; J3490; J7030

== ENCOUNTER 2024-09-27 18:14 | Emergency (ER) | payer MEDICARE, BC ==
[2024-09-27] MEDS ORDERED: Sodium Chloride 0.9% 10 ML Syringe FLUSH PRN (18:29)
[2024-09-27 18:44] LABS: BASOPHILS PERCENT AUTO 0.3 % (0.0-1.0); EOSINOPHILS PERCENT AUTO 0.2 % (1.0-3.0); HEMATOCRIT 37.9 % (37.0-47.0); HEMOGLOBIN 12.8 g/dL (12.0-16.0); LYMPHOCYTES PERCENT AUTO 13.2 % (20.5-50.1); MEAN CORPUSCULAR HEMOGLOBIN 31.4 pg (27.0-34.0); MEAN CORPUSCULAR HGB CONC 33.8 g/dL (33.0-35.0); MEAN CORPUSCULAR VOLUME 93.1 fL (80-100); MONOCYTES PERCENT AUTO 10.4 % (2-8); NEUTROPHILS PERCENT AUTO 75.9 % (42.2-75.2); PLATELET COUNT,PLT 263 10^3/uL (150-450); RED BLOOD CELL COUNT 4.07 10^6/uL (4.2-5.4); WHITE BLOOD CELL COUNT,WBC 6.1 10^3/uL (5.0-10.0)
[2024-09-27 19:09] LABS: ALANINE AMINOTRANSFERASE,ALT 29 U/L (14-59); ALBUMIN 3.6 g/dL (3.4-5.0); ALKALINE PHOSPHATASE 61 U/L (46-116); ANION GAP 14.9 mEq/L (7-13); ASPARTATE AMNIOTRANSFERASE,AST 19 U/L (15-37); BILIRUBIN TOTAL 0.7 mg/dL (0.2-1.0); BLOOD UREA NITROGEN,BUN 15 mg/dL (7-18); BUN/CREATININE RATIO 16.1 (No establ ref range); CALCIUM 9.4 mg/dL (8.5-10.1); CARBON DIOXIDE,CO2 25 mmol/L (21-32); CHLORIDE,CL 101 mmol/L (98-107); CREATININE 0.93 mg/dL (0.55-1.02); GLUCOSE RANDOM 179 mg/dL (70-99); MAGNESIUM 1.9 mg/dL (1.8-2.4); POTASSIUM,K 3.9 mmol/L (3.5-5.1); PROTEIN TOTAL,TP 7.1 g/dL (6.4-8.2); SODIUM,NA 137 mmol/L (136-145)
[2024-09-27 19:10] LABS: ESTIMATED GFR 61 mL/min (>=60)
[2024-09-27 21:16] LABS: APPEARANCE,URINE CLEAR (CLEAR); BILIRUBIN,URINE NEGATIVE (NEGATIVE); GLUCOSE,URINE NEGATIVE (NEGATIVE); KETONES,URINE NEGATIVE (NEGATIVE); LEUKOCYTE ESTERASE,URINE NEGATIVE (NEGATIVE); NITRITE,URINE NEGATIVE (NEGATIVE); OCCULT BLOOD,URINE NEGATIVE (NEGATIVE); PH,URINE 6.5 (5.0-9.0); PROTEIN,URINE NEGATIVE (NEGATIVE); UROBILINOGEN,URINE 0.2 mg/dL (0.2-1.0)
[2024-09-27 21:20] LABS: COLOR,URINE LIGHT YELLOW (YELLOW)
== END 2024-09-27 21:24 | disposition home or self-care (01) ==
LOC: DL.ED 18:14
DX: R53.1 Weakness (principal); F03.90 Unspecified dementia, unspecified severity, without behavioral disturbance, psychotic disturbance, mood disturbance, and anxiety; R05.9 Cough, unspecified; R53.83 Other fatigue; I48.91 Unspecified atrial fibrillation; E78.00 Pure hypercholesterolemia, unspecified; Z88.8 Allergy status to other drugs, medicaments and biological substances
CPT/HCPCS: 71045; 80053; 81003; 83735; 84484; 85025; 87428-QW; 93005; 93010; 99284; 99285

== ENCOUNTER 2024-12-09 13:42 | Emergency (ER) | payer MEDICARE, BC ==
[2024-12-09] MEDS: Bacitracin Oint 1 GM U/D Packet TOP ONE (14:56)
[2024-12-09] MEDS: Lidocaine 1% 5 ML VIAL INJECT ONE (14:57)
[2024-12-09] MEDS: Diphtheria,Pertussis(Acell),Tetanus Vaccine 0.5 ML Syringe IM ONE (15:22)
== END 2024-12-09 15:28 | disposition home or self-care (01) ==
LOC: DL.ED 13:42
DX: S01.511A Laceration without foreign body of lip, initial encounter (principal); S00.81XA Abrasion of other part of head, initial encounter; E78.00 Pure hypercholesterolemia, unspecified; Z79.899 Other long term (current) drug therapy; Z90.710 Acquired absence of both cervix and uterus; W18.30XA Fall on same level, unspecified, initial encounter
CPT/HCPCS: 70450; 70486; 72125; 90471; 90715; 99284; A9270; J2003; 99283